=== PATIENT | female | born 1990 ===

== ENCOUNTER 2018-10-10 09:48 | Inpatient (IN) | payer OTHER ==
[~2018-10-10] VITALS: Ht 172.7 cm; Wt 7.7 kg
== END 2018-11-07 13:47 | DRG 743 ==
LOC: SURH 11-05 07:00 → SURG-SUITE 11-05 08:04 → O/R 11-05 08:04 → SURH 11-05 08:15 → SURG-SUITE 11-05 14:49
PROVIDERS: ADMIT Obstetrics & Gynecology
PROC: 0UT00ZZ Resection of Right Ovary, Open Approach (ICD-10-PCS; principal; 2018-11-05 07:00)
DX: D27.0 Benign neoplasm of right ovary (principal)

== ENCOUNTER 2021-02-24 13:00 | Outpatient (CLI) | payer OTHER | END 2021-02-24 14:26 | disposition home or self-care (01) | LOC: PRENATAL 13:00 | PROVIDERS: ATTEND Obstetrics & Gynecology Maternal & Fetal Medicine | DX: O26.851 Spotting complicating pregnancy, first trimester (principal); O36.80X1 Pregnancy with inconclusive fetal viability, fetus 1; O44.01 Complete placenta previa NOS or without hemorrhage, first trimester; Z36.89 Encounter for other specified antenatal screening; Z3A.14 14 weeks gestation of pregnancy ==

== ENCOUNTER 2021-04-12 07:48 | Outpatient (CLI) | payer OTHER | END 2021-04-12 09:25 | disposition home or self-care (01) | LOC: PRENATAL 07:48 | PROVIDERS: ATTEND Obstetrics & Gynecology Maternal & Fetal Medicine | DX: O35.0XX1 Maternal care for (suspected) central nervous system malformation in fetus, fetus 1 (principal); O35.3XX1 Maternal care for (suspected) damage to fetus from viral disease in mother, fetus 1; O98.512 Other viral diseases complicating pregnancy, second trimester; O44.02 Complete placenta previa NOS or without hemorrhage, second trimester; O26.852 Spotting complicating pregnancy, second trimester; Z36.89 Encounter for other specified antenatal screening; Z3A.20 20 weeks gestation of pregnancy ==

== ENCOUNTER 2021-07-08 09:44 | Outpatient (CLI) | payer OTHER | END 2021-07-08 11:15 | disposition home or self-care (01) | LOC: PRENATAL 09:44 | PROVIDERS: ATTEND Obstetrics & Gynecology Maternal & Fetal Medicine | DX: O26.849 Uterine size-date discrepancy, unspecified trimester (principal); O35.0XX0 Maternal care for (suspected) central nervous system malformation in fetus, not applicable or unspecified; O36.8199 Decreased fetal movements, unspecified trimester, other fetus ==

== ENCOUNTER 2021-08-02 14:15 | Inpatient (IN) | payer OTHER ==
[~2021-08-02] VITALS: Ht 172.7 cm; Wt 89.8 kg
[2021-08-25] MEDS ORDERED: PRENATAL TABLE1 EAC1 PO (08:14)
[2021-08-25] MEDS ORDERED: VITAMIN D310 MC4 PO (08:15)
[2021-08-25] MEDS ORDERED: IRON325 MG PO (08:15)
[2021-08-28] MEDS ORDERED: IBU800 MG PO (10:14)
[2021-08-28] MEDS ORDERED: SIMETHICONE125 M1 PO (10:14)
[2021-08-28] MEDS ORDERED: SURFAK240 M1 PO (10:15)
== END 2021-08-28 11:10 | disposition home or self-care (01) | DRG 788 ==
LOC: LDR 08-25 07:04 → OB/GYN 08-26 19:23
PROVIDERS: ADMIT Obstetrics & Gynecology; ATTEND Obstetrics & Gynecology
PROC: 10D00Z1 Extraction of Products of Conception, Low, Open Approach (ICD-10-PCS; principal; 2021-08-25)
PROC: 4A1HXCZ Monitoring of Products of Conception, Cardiac Rate, External Approach (ICD-10-PCS; 2021-08-25)
PROC: 3E033VJ Introduction of Other Hormone into Peripheral Vein, Percutaneous Approach (ICD-10-PCS; 2021-08-25)
DX: O61.0 Failed medical induction of labor (principal); O62.0 Primary inadequate contractions; Z20.822 Contact with and (suspected) exposure to COVID-19; Z37.0 Single live birth; Z3A.39 39 weeks gestation of pregnancy

== ENCOUNTER 2022-11-13 10:38 | Outpatient (CLI) | payer OTHER ==
[~2022-11-13 10:38] MED LIST: IBU800 MG PO; IRON325 MG PO; PRENATAL TABLE1 EAC1 PO; SIMETHICONE125 M1 PO; SURFAK240 M1 PO; VITAMIN D310 MC4 PO
== END 2022-11-13 12:07 | disposition home or self-care (01) ==
LOC: PRENATAL 10:38
PROVIDERS: ATTEND Obstetrics & Gynecology Maternal & Fetal Medicine
DX: O36.80X0 Pregnancy with inconclusive fetal viability, not applicable or unspecified (principal); O34.219 Maternal care for unspecified type scar from previous cesarean delivery; Z3A.12 12 weeks gestation of pregnancy

== ENCOUNTER 2023-01-08 12:29 | Outpatient (CLI) | payer OTHER | END 2023-01-08 17:04 | disposition home or self-care (01) | LOC: PRENATAL 12:29 | PROVIDERS: ATTEND Obstetrics & Gynecology Maternal & Fetal Medicine | DX: O35.3XX0 Maternal care for (suspected) damage to fetus from viral disease in mother, not applicable or unspecified (principal); O34.219 Maternal care for unspecified type scar from previous cesarean delivery; O09.529 Supervision of elderly multigravida, unspecified trimester; O44.00 Complete placenta previa NOS or without hemorrhage, unspecified trimester; Z3A.20 20 weeks gestation of pregnancy ==

== ENCOUNTER 2023-04-16 13:48 | Outpatient (CLI) | payer OTHER | END 2023-04-16 13:49 | disposition home or self-care (01) | LOC: PRENATAL 13:48 | PROVIDERS: ATTEND Obstetrics & Gynecology Maternal & Fetal Medicine | DX: O26.849 Uterine size-date discrepancy, unspecified trimester (principal); O34.219 Maternal care for unspecified type scar from previous cesarean delivery; O09.529 Supervision of elderly multigravida, unspecified trimester; O36.8199 Decreased fetal movements, unspecified trimester, other fetus; Z3A.34 34 weeks gestation of pregnancy ==

== ENCOUNTER 2023-05-18 08:15 | Inpatient (IN) | payer OTHER ==
[~2023-05-18] VITALS: Ht 172.7 cm; Wt 3.2 kg
[2023-05-18 10:23] LABS: PH,URINE 6.5 (5.0-8.0); URINE APPEARANCE Cloudy; URINE BILIRRUBIN Negative (NEGATIVE); URINE BLOOD Negative; URINE COLOR Yellow; URINE GLUCOSE Negative (NEGATIVE); URINE LEUKOCYTE Negative; URINE NITRATE Negative; URINE PROTEIN Negative (NEGATIVE)
[2023-05-18 10:28] LABS: URINE BACTERIA 1765.1 uL (0.0-1933); URINE EPITHELIAL CELLS 76.9 uL (0.0-38.8); URINE RBC 2.7 uL (0.0-20.8); URINE WBC 54.4 uL (0.0-23.2)
[2023-05-18 10:30] LABS: HEMATOCRIT 34.7 % (36.0-45.00); HEMOGLOBIN 11.2 g/dL (12.0-15.00); MEAN CORPUSCULAR HEMOGLOBIN 22.2 pg (27.00-32.0); MEAN CORPUSCULAR HGB CONC 32.4 g/dl (32.0-36.0); PLATELET COUNT 312 K/uL (150-450); RED BLOOD COUNT 5.05 M/uL (4.00-6.00)
[2023-05-18 10:31] LABS: MEAN CELL VOLUME 68.6 fL (80.00-100.00)
[2023-05-18 10:32] LABS: RED CELL DISTRIBUTION WIDTH 18.9 % (11.5-14.5)
[2023-05-18 10:53] LABS: INR < 0.93; PROTHROMBIN TIME 9.5 SECONDS (9.0-11.5)
[2023-05-18 10:57] LABS: ALBUMIN 3.1 gm/dL (3.4-5.0); BILIRUBIN TOTAL 0.48 mg/dL (0.3-1.2); CALCIUM 9.3 mg/dL (8.5-10.1); CREATININE SERUM 0.45 mg/dL (0.55-1.02); GFR 158.56; GLOBULINA 3.8 G/DL (2.4-3.5); POTASSIUM 4.67 mEq/L (3.5-5.1); TOTAL PROTEIN 6.9 gm/dL (6.4-8.2)
[2023-05-18 11:00] LABS: URINE CRYSTALS MODERATE /HPF; URINE YEAST NEGATIVE /hpf
[2023-05-22] MEDS ORDERED: [UNRECOGNIZED DRUG - SUPPLY] (13:08)
[2023-05-22 16:37] LABS: HEMATOCRIT 31.8 % (36.0-45.00); HEMOGLOBIN 10.4 g/dL (12.0-15.00); MEAN CORPUSCULAR HEMOGLOBIN 22.3 pg (27.00-32.0); MEAN CORPUSCULAR HGB CONC 32.9 g/dl (32.0-36.0); PLATELET COUNT 258 K/uL (150-450); RED BLOOD COUNT 4.67 M/uL (4.00-6.00); RED CELL DISTRIBUTION WIDTH 18.6 % (11.5-14.5)
== END 2023-05-24 14:39 | disposition home or self-care (01) | DRG 788 ==
LOC: OB/GYN 05-22 08:15 → O/R 05-22 10:11 → OB/GYN 05-22 15:03
PROVIDERS: ADMIT Student in an Organized Health Care Education/Training Program; ATTEND Student in an Organized Health Care Education/Training Program
PROC: 0DNW0ZZ Release Peritoneum, Open Approach (ICD-10-PCS; 2023-05-22)
PROC: 4A1HXCZ Monitoring of Products of Conception, Cardiac Rate, External Approach (ICD-10-PCS; 2023-05-22)
PROC: 10D00Z1 Extraction of Products of Conception, Low, Open Approach (ICD-10-PCS; principal; 2023-05-22 08:30)
DX: O34.211 Maternal care for low transverse scar from previous cesarean delivery (principal); O99.892 Other specified diseases and conditions complicating childbirth; N73.6 Female pelvic peritoneal adhesions (postinfective); Z3A.39 39 weeks gestation of pregnancy; Z37.0 Single live birth; Z20.822 Contact with and (suspected) exposure to COVID-19